=== PATIENT | male | born 1985 | race Caucasian/White ===

== ENCOUNTER 2017-12-12 18:59 | Emergency (ER) | payer SELFPAY ==
[2017-12-12 19:34] VITALS: TEMP 98.9
--- NOTE | 2017-12-12 19:40 | ED.PDOC ---
History of Present Illness - General Chief Complaint: Abdominal Pain Stated Complaint: mid abdomen pain Time Seen by Provider: 12/12/17 19:38 Information Source: patient, RN notes reviewed Exam Limitations: no limitations Additional Information: 32 YEAR OLD PRESENTS WITH SEVERE UPPER ABDOMINAL PAIN SUDDEN ONSET JUST PRIOR TO ARRIVAL AFTER EATING SALAD FOR LUNCH HE HAS KNOWN HISTORY OF ULCERATIVE COLITIS DIAGNOSED [address] [place] JULES HE IS ON ASACOL DENIES ANY FEVER CHILLS NO BLOODY DIARRHEA NO HEMATEMESIS - History of Present Illness Abdominal Pain Onset Location: RUQ, epigastric Pain Radiation: no radiation Quality: moderate, severe Timing/Duration: 1 hour Improving Factors: nothing Associated Symptoms: denies symptoms Review of Systems - Review of Systems Constitutional: States: no symptoms reported EENTM: States: no symptoms reported Respiratory: States: no symptoms reported Cardiology: States: no symptoms reported Gastrointestinal/Abdominal: States: see HPI Genitourinary: States: no symptoms reported Musculoskeletal: States: no symptoms reported Skin: States: no symptoms reported Neurological: States: no symptoms reported Past Medical History (General) - Patient Medical History Hx Seizures: No Hx Stroke: No Hx Dementia: No Hx Asthma: No Hx of COPD: No Hx Cardiac Disorders: No Hx Congestive Heart Failure: No Hx Pacemaker: No Hx Hypertension: Yes Hx Thyroid Disease: No Hx Diabetes: No Hx Gastroesophageal Reflux: No Hx Renal Disease: No Hx of HIV: No Hx MRSA: No - Vaccination History Hx Tetanus, Diphtheria Vaccination: Yes - October 2017 Hx Influenza Vaccination: No - Social History Hx Tobacco Use: Yes Hx Alcohol Use: No Family Medical History - Family History Mother Family History: Unknown Physical Exam - Physical Exam General Appearance: Anxious Eyes, Ears, Nose, Throat Exam: PERRL/EOMI, normal ENT inspection, TMs normal, pharynx normal Neck: non-tender, full range of motion, supple Respiratory: chest non-tender, lungs clear, normal breath sounds, no respiratory distress, no accessory muscle use Cardiovascular/Chest: normal peripheral pulses, regular rate, rhythm, no edema Gastrointestinal/Abdominal: normal bowel sounds, no organomegaly, no pulsatile mass, tenderness Back Exam: normal inspection, no CVA tenderness Extremity: normal range of motion, normal inspection 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, no motor/sensory deficits, alert, normal mood/affect, oriented x 3 Skin Exam: normal color, warm/dry Lymphatic: no adenopathy Progress - Results/Orders Results/Orders: Laboratory Tests 12/12/17 12/12/17 19:57 19:57 WBC 10.5 RBC 5.31 Hgb 17.2 Hct 49.7 MCV 93.5 MCH 32.3 H MCHC 34.6 RDW 13.7 Plt Count 180 MPV 9.7 Absolute Neuts (auto) 6.40 Absolute Lymphs (auto) 2.50 Absolute Monos (auto) 1.10 H Absolute Eos (auto) 0.30 Absolute Basos (auto) 0.10 Neutrophils % 61.3 Lymphocytes % 23.7 Monocytes % 10.5 H Eosinophils % 3.2 Basophils % 1.3 Sodium 137 Potassium 3.9 Chloride 106 Carbon Dioxide 25 Anion Gap 9.9 L BUN 15 Creatinine 0.91 BUN/Creatinine Ratio 16.5 Random Glucose 113 H Serum Osmolality 275.5 Calcium 9.2 Total Bilirubin 0.4 AST 24 ALT 48 Alkaline Phosphatase 65 Serum Total Protein 7.3 Albumin 4.4 Globulin 2.9 Albumin/Globulin Ratio 1.5 Departure - Departure Clinical Impression: Abdominal pain, Ulcerative colitis Time of Disposition: 21:11 Disposition: Discharge to Home or Self Care Condition: Good Departure Forms: ED Discharge - Pt. Copy, Patient Portal Self Enrollment Instructions: DI for Abdominal Pain-Adult Referrals: JUAN A SANTIAGO [Primary Care Provider] - 1-2 Weeks Prescriptions: Dicyclomine HCl [Bentyl] 20 mg PO Q6HRS #40 tab Home Medications: Ambulatory Orders Dicyclomine HCl [Bentyl] 20 mg PO Q6HRS #40 tab 12/12/17
[2017-12-12] MEDS ORDERED: SODIUM CHLORIDE 0.9% 1000ML 1,000 ML IVS ONE (19:43)
[2017-12-12] MEDS ORDERED: KETOROLAC TROMETHAMINE INJ 30 MG/ML VIAL IV ONE (19:43)
--- NOTE | 2017-12-12 21:04 | CT ---
CT abdomen and pelvis with contrast on 12/12/2017 CLINICAL INDICATION: Generalized abdominal pain, reported history of ulcerative colitis, hypertension TECHNIQUE: Multiple axial images are obtained throughout the abdomen and pelvis following the administration of IV contrast. This exam was performed according to our departmental dose-optimization program, which includes automated exposure control, adjustment of the mA and/or kV according to patient size and/or use of iterative reconstruction technique. Total DLP is 1814.29 mGy*cm. COMPARISON: None FINDINGS: Abdomen: There is minimal bibasilar atelectasis. There is fatty infiltration of the liver. There is a small left renal cyst. The solid abdominal organs are otherwise unremarkable. There is no abdominal adenopathy. There is no free fluid or free air within the abdomen. The abdominal portion of the GI tract is unremarkable. Pelvis: There is no free fluid in the pelvis. There is a small left inguinal hernia containing only fat. There is no pelvic adenopathy. Pelvic portion of the GI tract including the appendix is unremarkable. No acute bony abnormality is noted. IMPRESSION: 1. Fatty infiltration of the liver. 2. No acute abnormality. Electronically signed by: Jd Nair 12/12/2017 9:03 PM CDT
[2017-12-12 22:17] VITALS: BP 153/97; O2SAT 100
== END 2017-12-12 22:18 | disposition home or self-care (01) ==
LOC: ER 18:59
DX: K51.90 Ulcerative colitis, unspecified, without complications (principal); I10 Essential (primary) hypertension; Z87.891 Personal history of nicotine dependence
CPT/HCPCS: 36415; 74177; 80053; 85025; J1885; J7030